=== PATIENT | female | born 1955 | race Two or more races ===

== ENCOUNTER 2024-01-03 14:03 | Emergency (ER) | payer OTHER ==
[~2024-01-03] VITALS: Ht 149.9 cm; Wt 65.0 kg
[2024-01-03 14:43] VITALS: PULSE 104; RESP 14; O2SAT 97
[2024-01-03] MEDS ORDERED: HYDR-4902 PO (16:38)
[2024-01-03 16:45] VITALS: BP 160/60; PULSE 83; RESP 16; TEMP 98.2; O2SAT 99
[2024-01-03] MEDS: HYDROcodone-ACET 5/325MG TAB PO ONE (16:51)
== END 2024-01-03 17:00 | disposition home or self-care (01) ==
LOC: ER 14:03 → EDBD 14:03 → ER 16:50
DX: S09.8XXA Other specified injuries of head, initial encounter (principal); E78.5 Hyperlipidemia, unspecified; Z98.890 Other specified postprocedural states; V98.8XXA Other specified transport accidents, initial encounter; Y93.89 Activity, other specified; Y92.89 Other specified places as the place of occurrence of the external cause; Y99.8 Other external cause status
CPT/HCPCS: 70450